=== PATIENT | female | born 1970 | race American Indian/Alaskan Native ===

== ENCOUNTER 2017-01-31 09:31 | Outpatient (CLI) | payer OTHER ==
--- NOTE | 2017-01-31 15:30 | Mammography Report ---
BILATERAL DIGITAL SCREENING MAMMOGRAM with CAD: 01/31/17 09:31:00 CLINICAL: Routine screening. COMPARISON:02/01/16 FINDINGS: The breasts are heterogeneously dense, which may obscure small masses. No mass, architectural distortion or suspicious calcifications. IMPRESSION: No mammographic evidence of malignancy. BI-RADS CATEGORY: 1 - - Negative RECOMMENDATION: Routine mammographic screening in one year. COMMENT: Patient follow-up letters are generated by our [employer] application.
== END 2017-01-31 09:32 | disposition home or self-care (01) ==
LOC: SPVWC 09:31
PROVIDERS: ATTEND Obstetrics & Gynecology
DX: Z12.31 Encounter for screening mammogram for malignant neoplasm of breast (principal)
CPT/HCPCS: 77067; G0202

== ENCOUNTER 2018-04-05 08:12 | Outpatient (CLI) | payer OTHER ==
--- NOTE | 2018-04-05 10:43 | Mammography Report ---
BILATERAL MAMMOGRAM: FINDINGS: The breast tissue is heterogeneously dense, which could obscure detection of small masses (approximately 50%-75% glandular). No mass, distortion, suspicious calcification, or skin change is seen. No significant changes when compared to prior exams dating back to January 2016. CAD was utilized. IMPRESSION: Negative mammogram. There is no mammographic evidence of malignancy. RECOMMENDATION: Follow-up per ACS guidelines. BI-RADS CATEGORY: 1 = Negative ACR BI-RADS MAMMOGRAPHIC CODES: 0 = Needs additional imaging evaluation; 1 = Negative; 2 = Benign; 3 = Probably benign; 4 = Suspicious; 5 = Malignant; 6 = Known biopsy-proven malignancy COMMENT: 1. Dense breast tissue, i.e., adenosis, fibrocystic changes, etc., may obscure an underlying neoplasm. 2. Approximately 10% of cancers are not detected with mammography. 3. A negative mammography report should not delay biopsy if a clinically suspicious mass is present. COMMENT: Patient follow-up letters are generated in [employer].
--- NOTE | 2018-04-05 14:11 | Ultrasound Report ---
Pelvic ultrasound: History of fibroids for evaluation. Endovaginal and transabdominal imaging is performed. The uterus is anteverted and measures 5.7 x 7.3 x 10.4 cm. The endometrium is smooth with no filling defect. The thickness is approximately 7 mm. There is a circumscribed homogeneously hyperdense elongated nodule at the margin of the superior endometrium. It has a maximum dimension of 8 mm. No myometrial mass is identified that would be consistent with fibroid. There is a 1 cm nabothian cysts in the cervix. The right ovary measures 3.2 cm in greatest dimension. There are several small calcifications within the ovary and a small peripheral cysts. The left ovary measures 3.4 cm also containing a small peripheral cyst. Flow is identified in both ovaries. No free fluid. Impression: 1. Uterine size within normal range. No fibroids identified. 2. Submucous nodule. Indeterminate significance.
== END 2018-04-05 08:13 | disposition home or self-care (01) ==
LOC: SPVWC 08:12
PROVIDERS: ATTEND Obstetrics & Gynecology
DX: Z12.31 Encounter for screening mammogram for malignant neoplasm of breast (principal); D25.9 Leiomyoma of uterus, unspecified; N83.201 Unspecified ovarian cyst, right side; E66.9 Obesity, unspecified; D64.9 Anemia, unspecified
CPT/HCPCS: 76830; 76856; 77067